=== PATIENT | male | born 1960 | race Caucasian/White ===

== ENCOUNTER 2020-02-17 20:11 | Inpatient (IN) | payer OTHER ==
[~2020-02-17] VITALS: Ht 180.3 cm; Wt 139.7 kg
[~2020-02-17 20:11] MED LIST: NONE REPORTED
[2020-02-17] MEDS ORDERED: ACETAMINOPHEN 325MG TABLET PO STA (20:19)
[2020-02-17] MEDS ORDERED: DEXAMETHASONE 10 MG/ML VIAL IV ONE (20:30)
[2020-02-17] MEDS ORDERED: DILTIAZEM HCL 5MG/ML 5ML VIAL IV ONE ×2 (20:30→20:45)
[2020-02-17] MEDS ORDERED: SODIUM CHLORIDE 0.9% 1,000 ML IV ONE (20:30)
[2020-02-17] MEDS ORDERED: AZITHROMYCIN 500 MG in DEXT 5% WATER 250 ML IV ONE (20:30)
[2020-02-17] MEDS ORDERED: CEFTRIAXONE 1 G PREMIX 50 ML IV ONE (20:30)
[2020-02-17 21:34] LABS: HEMATOCRIT. 42.6 % (42.0-52.0); HEMOGLOBIN. 14.4 g/dL (14.0-18.0); MEAN CORPUSCULAR HEMOGLOBIN 30.3 pg (28.0-32.0); MEAN CORPUSCULAR VOLUME 89.3 fL (80.0-94.0); MEAN PLATELET VOLUME 9.7 fl (7.4-10.4); PLATELET 190 x1000/uL (130-400); RED BLOOD CELL COUNT 4.76 mill/uL (4.7-6.1); RED CELL DISTRIBUTION WIDTH 14.2 % (11.6-14.6)
[2020-02-17 21:43] LABS: D-DIMER 1.12 mg/L FEU (<0.50); PROTHROMBIN TIME 10.9 sec (9.6-11.0)
[2020-02-17 21:44] LABS: CHLORIDE 105 mEq/L (98-107)
[2020-02-17 21:48] LABS: ETHANOL BLOOD < 10 mg/dL
[2020-02-17 21:52] LABS: CREATINE KINASE 234 IU/L (39-308)
[2020-02-17 22:01] LABS: CLARITY URINE CLEAR (CLEAR); COLOR URINE YELLOW (YELLOW); KETONES URINE NEGATIVE (NEGATIVE); LEUKOCYTE ESTERASE URINE NEGATIVE (NEGATIVE); NITRITE URINE NEGATIVE (NEGATIVE); OCCULT BLOOD URINE 1+ (NEGATIVE); PROTEIN URINE TRACE (NEGATIVE); UROBILINOGEN URINE 0.2 E.U./dL (0.2-1.0)
[2020-02-17 22:11] LABS: PLATELET ESTIMATE NORMAL
[2020-02-17 22:17] LABS: *AMPHETAMINES SCREEN URINE PRESUMTIVE POSITIVE (NEGATIVE); CANNABINOID URINE SCREEN NEGATIVE (NEGATIVE); PHENCYCLIDINE URINE SCREEN NEGATIVE (NEGATIVE)
[2020-02-17 22:19] LABS: *BARBITURATES SCREEN URINE NEGATIVE (NEGATIVE); *BENZODIAZEPINES SCREEN URINE NEGATIVE (NEGATIVE); *COCAINE SCREEN URINE NEGATIVE (NEGATIVE); METHADONE URINE SCREEN NEGATIVE (NEGATIVE); OPIATES URINE SCREEN NEGATIVE (NEGATIVE)
[2020-02-18 04:00] VITALS: BP 107/71
[2020-02-18 04:51] VITALS: BP 107/71
[2020-02-18] MEDS ORDERED: ONDANSETRON HCL 4MG/2ML INJ IV PRN (05:45)
[2020-02-18] MEDS ORDERED: ALBUTEROL 6.7GM HFA INHALER ORI PRN (06:00)
[2020-02-18] MEDS: ACETAMINOPHEN 325MG TABLET PO PRN ×2 (06:32→20:41)
[2020-02-18 08:00] VITALS: BP 133/100
[2020-02-18] MEDS ORDERED: MAGNESIUM/ALUMINUM HYDROXIDE/SIMETHICONE 30ML UDC PO PRN (08:45)
[2020-02-18] MEDS ORDERED: HYDROCODONE/ACETAMINOPHEN 5/325MG TABLET PO PRN (08:45)
[2020-02-18] MEDS ORDERED: ENOXAPARIN 30MG/0.3ML SYR SUBCUT SCH (09:00)
[2020-02-18] MEDS ORDERED: ENOXAPARIN 40MG/0.4ML SYR SUBCUT SCH (09:00)
[2020-02-18] MEDS ORDERED: AMLODIPINE 10MG TABLET PO SCH (09:00)
[2020-02-18] MEDS: FAMOTIDINE 20MG TABLET PO SCH ×2 (09:43→20:40)
[2020-02-18] MEDS ORDERED: PNEUMOCOCCAL 23-VAL P-SAC VAC 0.5 ML IM ONE (10:00)
[2020-02-18] MEDS ORDERED: GUAIFENESIN-DM 200MG-20MG/10ML UDC PO PRN (10:45)
[2020-02-18] MEDS ORDERED: CHLO50TA PO (12:50)
[2020-02-18] MEDS ORDERED: ATOR40TA70 PO (12:50)
[2020-02-18] MEDS: METHYLPREDNISOLONE SOD SUCC 40 MG/ML VIAL IV SCH ×2 (13:51→20:40)
[2020-02-18] MEDS ORDERED: DILTIAZEM HCL 60MG TABLET PO SCH (14:00)
[2020-02-18] MEDS ORDERED: VANCOMYCIN 2,000 MG in DEXT 5% WATER 500 ML IV SCH (15:00)
[2020-02-18] MEDS: CLONIDINE 0.1MG TABLET PO PRN (16:13)
[2020-02-18] MEDS ORDERED: LOSARTAN POTASSIUM 25 MG TABLET PO NR (18:30)
[2020-02-18] MEDS ORDERED: DILTIAZEM HCL 30MG TABLET PO NR (18:30)
[2020-02-18 20:00] VITALS: BP 91/51
[2020-02-18] MEDS: AZITHROMYCIN 500 MG in DEXT 5% WATER 250 ML IV SCH (20:41)
[2020-02-18] MEDS: ENOXAPARIN 40MG/0.4ML SYR SUBCUT SCH (20:42)
[2020-02-18] MEDS: CEFTRIAXONE 1,000 MG in DEXTROSE 5% WATER 50 ML IV SCH (20:42)
[2020-02-18] MEDS ORDERED: DAPTOMYCIN 250 MG in SODIUM CHLORIDE 0.9% 50 ML IV SCH (21:15)
[2020-02-18] MEDS ORDERED: DAPTOMYCIN 500 MG in SODIUM CHLORIDE 0.9% 50 ML IV SCH (22:00)
[2020-02-19] VITALS: BP 150/78
[2020-02-19] MEDS: DAPTOMYCIN 500 MG in SODIUM CHLORIDE 0.9% 50 ML IV SCH (00:07)
[2020-02-19] MEDS: DILTIAZEM HCL 90MG TABLET PO SCH ×4 (00:07→18:02)
[2020-02-19 04:00] VITALS: BP 112/56
[2020-02-19 05:03] LABS: CHLORIDE 102 mEq/L (98-107)
[2020-02-19 05:10] LABS: LDL CHOLESTEROL 75 mg/dL (5-100)
[2020-02-19 05:11] LABS: HDL CHOLESTEROL 64 mg/dL (40-59)
[2020-02-19] MEDS: METHYLPREDNISOLONE SOD SUCC 40 MG/ML VIAL IV SCH ×3 (05:12→21:10)
[2020-02-19 05:28] LABS: HEMOGLOBIN. 14.3 g/dL (14.0-18.0); MEAN CORPUSCULAR HEMOGLOBIN 29.6 pg (28.0-32.0); MEAN CORPUSCULAR VOLUME 89.4 fL (80.0-94.0); MEAN PLATELET VOLUME 10.3 fl (7.4-10.4); PLATELET 150 x1000/uL (130-400); RED BLOOD CELL COUNT 4.81 mill/uL (4.7-6.1); RED CELL DISTRIBUTION WIDTH 14.5 % (11.6-14.6)
[2020-02-19] MEDS ORDERED: VANCOMYCIN 2,000 MG in DEXT 5% WATER 500 ML IV SCH (06:00)
[2020-02-19 08:00] VITALS: BP 149/90
[2020-02-19] MEDS: LOSARTAN POTASSIUM 25 MG TABLET PO SCH (08:57)
[2020-02-19] MEDS: ENOXAPARIN 40MG/0.4ML SYR SUBCUT SCH ×2 (08:57→21:11)
[2020-02-19] MEDS: FAMOTIDINE 20MG TABLET PO SCH ×2 (08:57→21:10)
[2020-02-19 13:16] LABS: PLATELET ESTIMATE NORMAL
[2020-02-19 16:00] VITALS: BP 181/88
[2020-02-19 17:20] VITALS: BP 155/75
[2020-02-19 20:00] VITALS: BP 152/82
[2020-02-19] MEDS: CEFTRIAXONE 1,000 MG in DEXTROSE 5% WATER 50 ML IV SCH (21:10)
[2020-02-19] MEDS: AZITHROMYCIN 500 MG in DEXT 5% WATER 250 ML IV SCH (21:10)
[2020-02-20] VITALS: BP 165/94
[2020-02-20] MEDS: DAPTOMYCIN 500 MG in SODIUM CHLORIDE 0.9% 50 ML IV SCH (00:50)
[2020-02-20] MEDS: CLONIDINE 0.1MG TABLET PO PRN (00:51)
[2020-02-20] MEDS: DILTIAZEM HCL 90MG TABLET PO SCH ×2 (00:51→06:53)
[2020-02-20 04:00] VITALS: BP 172/86
[2020-02-20 06:44] LABS: HEMOGLOBIN. 13.9 g/dL (14.0-18.0); MEAN CORPUSCULAR HEMOGLOBIN 29.5 pg (28.0-32.0); MEAN CORPUSCULAR VOLUME 89.2 fL (80.0-94.0); MEAN PLATELET VOLUME 10.2 fl (7.4-10.4); PLATELET 194 x1000/uL (130-400); RED BLOOD CELL COUNT 4.71 mill/uL (4.7-6.1); RED CELL DISTRIBUTION WIDTH 14.1 % (11.6-14.6)
[2020-02-20 06:51] LABS: CHLORIDE 101 mEq/L (98-107)
[2020-02-20] MEDS: METHYLPREDNISOLONE SOD SUCC 40 MG/ML VIAL IV SCH (06:53)
[2020-02-20 07:10] LABS: HIV SCREEN 4G Non Reactive (Non Reactive)
[2020-02-20 07:50] VITALS: BP 164/97
[2020-02-20] MEDS: LOSARTAN POTASSIUM 25 MG TABLET PO SCH (09:02)
[2020-02-20] MEDS: ENOXAPARIN 40MG/0.4ML SYR SUBCUT SCH (09:02)
[2020-02-20] MEDS: FAMOTIDINE 20MG TABLET PO SCH (09:28)
[2020-02-20] MEDS ORDERED: DILTIAZEM HCL 120MG CAPSULE CD 24HR PO SCH (10:30)
[2020-02-20 18:17] LABS: PLATELET ESTIMATE NORMAL
[2020-02-21] MEDS ORDERED: LOSARTAN POTASSIUM 25 MG TABLET PO SCH (09:00)
== END 2020-02-20 13:21 | disposition left against medical advice (07) | DRG 720 ==
LOC: ER 20:11 → EDBEDREQ 20:43 → 7EST 02-18 02:02 → EDBEDREQ 02-18 02:04 → EDBEDREQDT 02-18 02:04 → EDBEDREQTM 02-18 02:04 → ENRESERV 02-18 04:33 → 6WST 02-19 21:54
PROVIDERS: ADMIT Internal Medicine; ATTEND Internal Medicine
DX: A40.0 Sepsis due to streptococcus, group A (principal); J68.0 Bronchitis and pneumonitis due to chemicals, gases, fumes and vapors; J96.01 Acute respiratory failure with hypoxia; Z20.828 Contact with and (suspected) exposure to other viral communicable diseases; I10 Essential (primary) hypertension; E87.2 Acidosis; I16.0 Hypertensive urgency; Z91.19 Patient's noncompliance with other medical treatment and regimen; Z82.49 Family history of ischemic heart disease and other diseases of the circulatory system; J06.9 Acute upper respiratory infection, unspecified; T59.91XA Toxic effect of unspecified gases, fumes and vapors, accidental (unintentional), initial encounter; Y92.89 Other specified places as the place of occurrence of the external cause; F15.10 Other stimulant abuse, uncomplicated; Z53.29 Procedure and treatment not carried out because of patient's decision for other reasons; J69.0 Pneumonitis due to inhalation of food and vomit
CPT/HCPCS: 36415; 71045; 71275; 80048; 80053; 80061; 80305; 80320; 81003; 82550; 82728; 83605; 83615; 83880; 84145; 84443; 84484; 85025; 85379; 85384; 86140; 87077; 87186; 87389; 87635; 93005; 93306; 93970; 97166; 99291; J0456; J0696; J0878; J1100; J1650; J2920; J3370; J3490; J7030; J7060; G0480

== ENCOUNTER 2020-08-27 19:59 | Emergency (ER) | payer MEDICAID, OTHER ==
[~2020-08-27] VITALS: Ht 180.3 cm; Wt 137.0 kg
[~2020-08-27 19:59] MED LIST changes: +ATOR40TA70 PO; +CHLO50TA PO; -NONE REPORTED
[2020-08-27] MEDS ORDERED: ACETAMINOPHEN 325MG TABLET PO STA (20:20)
[2020-08-27] MEDS ORDERED: CEFTRIAXONE 1 G PREMIX 50 ML IV ONE (20:30)
[2020-08-27] MEDS ORDERED: AZITHROMYCIN 500 MG in DEXT 5% WATER 250 ML IV ONE (20:30)
[2020-08-27] MEDS ORDERED: SODIUM CHLORIDE 0.9% 1000ML BAG (SEPSIS BOLUS) IV ONE (20:30)
[2020-08-27] MEDS ORDERED: VANCOMYCIN 1 G PREMIX 200 ML IV SCH (21:00)
[2020-08-27 21:25] LABS: BG BASE EXCESS 2.7 mmol/L (-2.0-2.0); BG CARBOXYHEMOGLOBIN 0.7 % (0.5-1.5); BG DEOXYHEMOGLOBIN 0.9 % (0.0-5.0); BG FRACTION INSPIRED OXYGEN 100; BG HCO3 ACT 26.3 mmol/L (22.0-26.0); BG METHEMOGLOBIN 0.4 % (0.0-1.5); BG OXYGEN SATURATION 99.1 % (92.0-98.5); BG PCO2 37.5 mmHg (35.0-45.0); BG PH 7.464 (7.350-7.450); BG PO2 184.7 mmHg (75.0-100.0); BG SAMPLE SITE LEFT RADIAL; BG TOTAL HEMOGLOBIN 15.8 g/dL (12.0-18.0); BG VENT MODE MASK - NRB
[2020-08-27 22:02] LABS: HEMATOCRIT. 43.2 % (42.0-52.0); HEMOGLOBIN. 14.7 g/dL (14.0-18.0); MEAN CORPUSCULAR HEMOGLOBIN 29.2 pg (28.0-32.0); MEAN CORPUSCULAR VOLUME 85.6 fL (80.0-94.0); MEAN PLATELET VOLUME 9.7 fl (7.4-10.4); PLATELET 178 x1000/uL (130-400); RED BLOOD CELL COUNT 5.05 mill/uL (4.7-6.1); RED CELL DISTRIBUTION WIDTH 14.7 % (11.6-14.6)
[2020-08-27 22:08] LABS: CHLORIDE 97 mEq/L (98-107)
[2020-08-27 22:11] LABS: INR 1.3; PROTHROMBIN TIME 13.9 sec (9.6-11.0)
[2020-08-27] MEDS ORDERED: POTASSIUM CHLORIDE INJ 40 MEQ in DEXT 5% WATER 250 ML IV NR (22:30)
[2020-08-27 22:36] LABS: PLATELET ESTIMATE NORMAL
[2020-08-27] MEDS ORDERED: IOHEXOL-350 100 ML BOTTLE ONE (23:17)
[2020-08-28] MEDS ORDERED: ASPIRIN 325MG TABLET PO SCH (01:15)
[2020-08-28 06:42] LABS: CLARITY URINE CLEAR (CLEAR); COLOR URINE YELLOW (YELLOW); KETONES URINE NEGATIVE (NEGATIVE); LEUKOCYTE ESTERASE URINE NEGATIVE (NEGATIVE); NITRITE URINE NEGATIVE (NEGATIVE); OCCULT BLOOD URINE 2+ (NEGATIVE); PROTEIN URINE TRACE (NEGATIVE); SPECIFIC GRAVITY URINE 1.033 (1.005-1.030); UROBILINOGEN URINE 0.2 E.U./dL (0.2-1.0)
[2020-08-28 15:36] VITALS: BP 145/80
== END 2020-08-28 15:37 | disposition short-term general hospital (02) ==
LOC: ER 19:59 → CANBEDREQ 08-28 02:46 → ER 08-28 15:37
DX: A41.9 Sepsis, unspecified organism (principal); R65.20 Severe sepsis without septic shock; J18.9 Pneumonia, unspecified organism; L03.115 Cellulitis of right lower limb; I10 Essential (primary) hypertension; Z20.822 Contact with and (suspected) exposure to COVID-19
CPT/HCPCS: 36415; 36600; 71045; 71275; 80053; 81003; 82375; 82805; 83605; 83880; 84145; 84484; 85025; 85610; 87040; 87086; 87426; 87804; 93005; 93971; 96365; 96366; 96368; 96375; 99291; J0456; J0696; J3370; J3480; J7030; J7060; Q9967; Z7610